=== PATIENT | female | born 1970 | race Caucasian/White ===

== ENCOUNTER 2023-11-16 16:41 | Inpatient (IN) | payer MEDICARE, MEDICAID ==
[~2023-11-16] VITALS: Ht 152.4 cm; Wt 84.4 kg
[~2023-11-16 16:41] MED LIST: ATOR20TA PO; GABA-532 PO; MELA3TAB71 PO; OMEP20TA23 PO; VARE1TAB21 PO
[2023-11-16] MEDS ORDERED: NALOXONE HCL 0.4MG/ML 1ML VIAL IV PRN (18:15)
[2023-11-16 18:25] VITALS: BP 99/60; PULSE 88; RESP 20; TEMP 98
[2023-11-16] MEDS ORDERED: NALOXONE HCL 0.4MG/ML VIAL IV PRN (18:45)
[2023-11-16] MEDS: DEXT 5%/LACTATED RINGERS 1,000 ML IV SCH (19:00)
[2023-11-16] MEDS: HYDROCODONE/ACETAMINOPHEN 7.5/325MG TABLET PO PRN (19:26)
[2023-11-16 20:00] VITALS: BP 129/69; PULSE 89; RESP 18; TEMP 99.5
[2023-11-16] MEDS: ATORVASTATIN CALCIUM 40MG TABLET PO SCH (20:49)
[2023-11-17] MEDS: ACETAMINOPHEN 325MG TABLET PO PRN (01:19)
[2023-11-17 07:34] LABS: BASOPHILS % 0.3 % (0.0-2.0); EOSINOPHILS % 2.4 % (0.0-5.0); HEMOGLOBIN. 10.7 g/dL (12.0-16.0); LYMPHOCYTES % 27.8 % (20.0-50.0); MEAN CORPUSCULAR HEMOGLOBIN 30.5 pg (28.0-32.0); MEAN CORPUSCULAR HGB CONC 35.6 g/dL (31.0-37.0); MEAN CORPUSCULAR VOLUME 85.7 fL (81.0-99.0); MEAN PLATELET VOLUME 9.4 fl (7.4-10.4); MONOCYTES % 8.5 % (2.0-8.0); PLATELET 202 x1000/uL (130-400); RED CELL DISTRIBUTION WIDTH 12.8 % (11.6-14.6); WHITE BLOOD COUNT 8.3 x1000/uL (4.5-11.0)
[2023-11-17 07:55] LABS: ALANINE AMINOTRANSFERASE 12 IU/L (10-49); ALBUMIN 3.5 g/dL (3.2-4.8); ASPARTATE AMINOTRANSFERASE 21 IU/L (<34); BILIRUBIN TOTAL 0.8 mg/dL (0.1-1.0); CALCIUM 8.2 mg/dL (8.7-10.4); CARBON DIOXIDE 28 mEq/L (21-32); CHLORIDE 102 mEq/L (98-107); CREATININE 0.6 mg/dL (0.6-1.0); GLUCOSE 105 mg/dL (70-105); POTASSIUM 3.5 mEq/L (3.5-5.1); PROTEIN TOTAL 5.8 g/dL (6.0-8.3); SODIUM 137 mEq/L (136-145); UREA NITROGEN BLOOD 6 mg/dL (9-23)
[2023-11-17 08:00] VITALS: BP 90/44; PULSE 82; RESP 18; TEMP 98.6
[2023-11-17 08:01] LABS: PREALBUMIN < 5.0 mg/dl (10.0-40.0)
[2023-11-17] MEDS: PANTOPRAZOLE SODIUM 40 MG/VIAL IV SCH (08:32)
[2023-11-17] MEDS: ENOXAPARIN 40MG/0.4ML SYR SUBCUT SCH (08:33)
[2023-11-17] MEDS: LACTULOSE 20G/30ML UDC PO SCH (12:57)
[2023-11-17 20:00] VITALS: BP 121/74; PULSE 98; RESP 19; TEMP 98
[2023-11-17] MEDS: MORPHINE SULFATE 2 MG/ML CPJ (NOT FOR IM USE) IV PRN (20:21)
[2023-11-18 08:00] VITALS: BP 97/52; PULSE 82; RESP 20; TEMP 97.9
[2023-11-18 08:12] LABS: BASOPHILS % 0.4 % (0.0-2.0); EOSINOPHILS % 2.6 % (0.0-5.0); HEMATOCRIT. 27.2 % (36.0-48.0); HEMOGLOBIN. 9.5 g/dL (12.0-16.0); LYMPHOCYTES % 32.2 % (20.0-50.0); MEAN CORPUSCULAR HEMOGLOBIN 30.1 pg (28.0-32.0); MEAN CORPUSCULAR HGB CONC 34.9 g/dL (31.0-37.0); MEAN CORPUSCULAR VOLUME 86.2 fL (81.0-99.0); MEAN PLATELET VOLUME 9.4 fl (7.4-10.4); MONOCYTES % 11.8 % (2.0-8.0); PLATELET 206 x1000/uL (130-400); RED BLOOD CELL COUNT 3.16 mill/uL (4.2-5.4); RED CELL DISTRIBUTION WIDTH 12.3 % (11.6-14.6); WHITE BLOOD COUNT 8.5 x1000/uL (4.5-11.0)
[2023-11-18 08:30] LABS: FERRITIN 189 ng/mL (10-291); FOLIC ACID (FOLATE) SERUM 15.62 ng/mL (>5.38); VITAMIN B12 SERUM 240 pg/mL (211-911)
[2023-11-18 08:34] LABS: ALANINE AMINOTRANSFERASE 12 IU/L (10-49); ALBUMIN 3.3 g/dL (3.2-4.8); ASPARTATE AMINOTRANSFERASE 19 IU/L (<34); BILIRUBIN TOTAL 0.6 mg/dL (0.1-1.0); CALCIUM 8.2 mg/dL (8.7-10.4); CARBON DIOXIDE 25 mEq/L (21-32); CHLORIDE 106 mEq/L (98-107); CREATININE 0.6 mg/dL (0.6-1.0); GLUCOSE 101 mg/dL (70-105); IRON 13 ug/dL (50-170); POTASSIUM 3.4 mEq/L (3.5-5.1); PROTEIN TOTAL 6.1 g/dL (6.0-8.3); SODIUM 138 mEq/L (136-145); THYROID STIMULATING HORMONE 1.26 uIU/mL (0.55-4.78); TOTAL IRON BINDING CAPACITY 331 ug/dl (250-425); UREA NITROGEN BLOOD 9 mg/dL (9-23)
[2023-11-18] MEDS: CYANOCOBALAMIN 1000MCG/ML VIAL IM SCH (12:00)
[2023-11-18 12:09] VITALS: BP 129/67; PULSE 99; RESP 20; TEMP 98.4
[2023-11-18] MEDS: FERROUS SULFATE 325MG TABLET PO SCH (12:54)
[2023-11-18] MEDS: ASCORBIC ACID 500 MG TABLET PO SCH (12:54)
[2023-11-18] MEDS: POTASSIUM CHLORIDE 20MEQ TABLET SR PO NR (13:15)
[2023-11-18 13:28] LABS: CLARITY URINE CLEAR (CLEAR); COLOR URINE DARK YELLOW (YELLOW); GLUCOSE URINE NEGATIVE (NEGATIVE); KETONES URINE TRACE (NEGATIVE); LEUKOCYTE ESTERASE URINE NEGATIVE (NEGATIVE); NITRITE URINE NEGATIVE (NEGATIVE); OCCULT BLOOD URINE NEGATIVE (NEGATIVE); PROTEIN URINE NEGATIVE (NEGATIVE); SPECIFIC GRAVITY URINE 1.019 (1.005-1.030)
[2023-11-18 14:00] LABS: BACTERIA URINE TRACE; RBC URINE 0-2 /hpf (0-2); SQUAMOUS EPITHELIAL CELL URINE 2+ /lpf (RARE/1+); WBC URINE 0-2 /hpf (0-2); YEAST URINE NONE SEEN
[2023-11-18 20:00] VITALS: BP 126/82; PULSE 81; RESP 18; TEMP 97.7
[2023-11-18] MEDS: GABAPENTIN 300MG CAPSULE PO SCH (20:38)
[2023-11-19 04:00] VITALS: BP 120/78; PULSE 80; RESP 18; TEMP 97.5
[2023-11-19] MEDS: FAMOTIDINE 20MG TABLET PO SCH (08:04)
[2023-11-19 08:16] VITALS: BP 108/45; PULSE 78; RESP 20; TEMP 97.7
[2023-11-19] MEDS: ERGOCALCIFEROL 50000UNITS CAPSULE PO SCH (16:05)
[2023-11-19 20:00] VITALS: BP 115/58; PULSE 78; RESP 18; TEMP 98.2
[2023-11-20 08:00] VITALS: BP 102/56; PULSE 72; RESP 16; TEMP 98.8
[2023-11-20] MEDS: GABAPENTIN 300MG CAPSULE PO SCH (15:01)
[2023-11-20] MEDS: POLYETHYLENE GLYCOL 3350 (17GM) 1 DOSE PACK PO SCH (15:19)
[2023-11-20] MEDS: HYDROCODONE/ACETAMINOPHEN 7.5/325MG TABLET PO PRN (18:40)
[2023-11-20 19:57] VITALS: BP 104/61; PULSE 74; RESP 20; TEMP 97.2
[2023-11-20] MEDS: GABAPENTIN 100MG CAPSULE PO SCH (21:45)
[2023-11-21 07:16] LABS: HEMATOCRIT. 30.8 % (36.0-48.0); HEMOGLOBIN. 10.3 g/dL (12.0-16.0); MEAN CORPUSCULAR HEMOGLOBIN 30.5 pg (28.0-32.0); MEAN CORPUSCULAR HGB CONC 33.5 g/dL (31.0-37.0); MEAN CORPUSCULAR VOLUME 90.9 fL (81.0-99.0); MEAN PLATELET VOLUME 8.5 fl (7.4-10.4); PLATELET 297 x1000/uL (130-400); RED BLOOD CELL COUNT 3.39 mill/uL (4.2-5.4); RED CELL DISTRIBUTION WIDTH 13.1 % (11.6-14.6); WHITE BLOOD COUNT 5.5 x1000/uL (4.5-11.0)
[2023-11-21 07:18] LABS: DIFFERENTIAL COMMENT 1
[2023-11-21 07:45] LABS: ALANINE AMINOTRANSFERASE 20 IU/L (10-49); ALBUMIN 3.8 g/dL (3.2-4.8); ASPARTATE AMINOTRANSFERASE 32 IU/L (<34); BILIRUBIN TOTAL 0.3 mg/dL (0.1-1.0); CALCIUM 8.8 mg/dL (8.7-10.4); CARBON DIOXIDE 23 mEq/L (21-32); CHLORIDE 105 mEq/L (98-107); CREATININE 0.6 mg/dL (0.6-1.0); GLUCOSE 93 mg/dL (70-105); POTASSIUM 4.1 mEq/L (3.5-5.1); PROTEIN TOTAL 6.9 g/dL (6.0-8.3); SODIUM 136 mEq/L (136-145); UREA NITROGEN BLOOD 10 mg/dL (9-23)
[2023-11-21 08:00] VITALS: BP 102/59; PULSE 70; RESP 19; TEMP 99.1
[2023-11-21] MEDS: LACTULOSE 20G/30ML UDC PO NR (18:02)
[2023-11-21 18:44] LABS: PLATELET ESTIMATE NORMAL
[2023-11-21 20:00] VITALS: BP 110/61; PULSE 80; RESP 17; TEMP 98.4
[2023-11-22 08:00] VITALS: BP 93/40; PULSE 63; RESP 18; TEMP 97.6
[2023-11-22 12:00] VITALS: BP 84/46; PULSE 66; RESP 18; TEMP 97.7
[2023-11-22 16:00] VITALS: BP 84/40; PULSE 66; RESP 18; TEMP 97.9
[2023-11-22 20:00] VITALS: BP 98/49; PULSE 69; RESP 18; TEMP 98.7
[2023-11-23 08:00] VITALS: BP 79/39; PULSE 76; RESP 18; TEMP 97.6
[2023-11-23 20:00] VITALS: BP 106/62; PULSE 77; RESP 19; TEMP 98.2
[2023-11-24 08:00] VITALS: BP 94/49; PULSE 71; RESP 20; TEMP 97.6
[2023-11-24 16:16] VITALS: RESP 20
[2023-11-24 18:05] VITALS: BP 110/67; PULSE 72; TEMP 98.4; O2SAT 96
== END 2023-11-24 19:05 | disposition home health service (06) | DRG 552 ==
PROVIDERS: ADMIT Physical Medicine & Rehabilitation Spinal Cord Injury Medicine; ATTEND Internal Medicine
DX: M48.061 Spinal stenosis, lumbar region without neurogenic claudication (principal); Z59.00 Homelessness unspecified; E66.9 Obesity, unspecified; G89.29 Other chronic pain; E78.00 Pure hypercholesterolemia, unspecified; D64.9 Anemia, unspecified; B19.20 Unspecified viral hepatitis C without hepatic coma; E55.9 Vitamin D deficiency, unspecified; E61.1 Iron deficiency; E87.6 Hypokalemia; M47.26 Other spondylosis with radiculopathy, lumbar region; M51.16 Intervertebral disc disorders with radiculopathy, lumbar region; R53.81 Other malaise; R26.9 Unspecified abnormalities of gait and mobility; R53.1 Weakness; F17.200 Nicotine dependence, unspecified, uncomplicated; F41.9 Anxiety disorder, unspecified; Z68.36 Body mass index [BMI] 36.0-36.9, adult; Z79.899 Other long term (current) drug therapy; Z91.81 History of falling; Z98.1 Arthrodesis status
CPT/HCPCS: 36415; 80053; 81003; 82306; 82607; 82728; 82746; 83036; 83540; 83550; 84134; 84443; 85025; 97110; 97116; 97162; 97166; 97530; 97535; C9113; J1650; J2270; J3420; J7121